=== PATIENT | female | born 1980 | race Two or more races ===

== ENCOUNTER 2024-07-27 12:04 | Emergency (ER) | payer OTHER ==
[~2024-07-27] VITALS: Ht 167.6 cm; Wt 59.0 kg
[2024-07-27] MEDS ORDERED: LEVOTHYROXINE25 MC2 PO (13:10)
[2024-07-27] MEDS ORDERED: ONDANSETRON HCL 2 MG/ML VIAL IV STA (13:17)
[2024-07-27] MEDS ORDERED: 0.9 % SODIUM CHLORIDE 1,000 ML IV STA (13:17)
[2024-07-27] MEDS ORDERED: ONDANSETRON HCL 2 MG/ML VIAL ONE (13:30)
[2024-07-27 13:49] LABS: HEMATOCRIT 41.3 % (36.0-45.00); HEMOGLOBIN 14.3 g/dL (12.0-15.00); MEAN CELL VOLUME 86.2 fL (80.00-100.00); MEAN CORPUSCULAR HEMOGLOBIN 29.8 pg (27.00-32.0); MEAN CORPUSCULAR HGB CONC 34.6 g/dl (32.0-36.0); PLATELET COUNT 201 K/uL (150-450); RED BLOOD COUNT 4.79 M/uL (4.00-6.00); RED CELL DISTRIBUTION WIDTH 12.9 % (11.5-14.5)
[2024-07-27 15:00] LABS: CALCIUM 8.7 mg/dL (8.5-10.1); CREATININE SERUM 0.58 mg/dL (0.55-1.02); GFR 113.46; POTASSIUM 3.22 mEq/L (3.5-5.1)
== END 2024-07-27 16:07 | disposition home or self-care (01) ==
LOC: ER 12:07
PROVIDERS: Emergency Medicine
DX: K52.89 Other specified noninfective gastroenteritis and colitis (principal); R11.10 Vomiting, unspecified; E03.8 Other specified hypothyroidism
CPT/HCPCS: 36415; 96365; 96366; 99282; J2405; J7030